=== PATIENT | male | born 1980 | race Two or more races ===

== ENCOUNTER 2022-07-25 21:58 | Emergency (ER) | payer OTHER ==
[~2022-07-25] VITALS: Ht 175.3 cm; Wt 90.7 kg
--- NOTE | 2022-07-25 22:05 | NUR ---
[id number] FRM WORK C/O ANXIETY, DIFFICULTY BREATHING, SNORTED METH 5 DAYS AGO. PT A/OX4. TOLERATING R/A WELL WITH NO RESP DISTRESS. AMB WITH STEADY GAIT. SAFETY MEASURES IN PLACE.
--- NOTE | 2022-07-25 22:08 | NUR ---
SECURITY AT PT'S BEDSIDE FOR WANDING
[2022-07-25 23:12] LABS: BASOPHILS % (AUTO) 0.7 % (0.0-2.0); EOSINOPHILS % (AUTO) 3.3 % (0.0-6.0); HEMATOCRIT 42 % (39-51); HEMOGLOBIN 13.7 g/dL (13.5-17.5); LYMPHOCYTES # (AUTO) 1.8 K/uL (0.8-4.8); MEAN CORPUSCULAR HGB CONC 33 g/dl (31.0-36.0); MEAN CORPUSCULAR VOLUME 87 fL (80-96); MONOCYTES # (AUTO) 0.8 K/uL (0.1-1.30); MONOCYTES % (AUTO) 13.4 % (2.0-12.0); NEUTROPHILS # (AUTO) 3.2 K/uL (1.8-8.9); NEUTROPHILS % (AUTO) 52.6 % (43.0-81.0); PLATELET COUNT (AUTO) 235 K/uL (150-450); RED BLOOD CELL COUNT(AUTO) 4.84 MIL/uL (4.5-6.0); WHITE BLOOD COUNT (AUTO) 6.1 K/uL (4.3-11.0)
[2022-07-25 23:26] LABS: CALCIUM, SERUM 8.6 mg/dL (8.5-10.1); CARBON DIOXIDE 31 mmol/L (21-32); CHLORIDE 104 mmol/L (98-107); CREATININE 0.8 mg/dL (0.6-1.3); GLUCOSE 113 mg/dL (74-106); SODIUM SERUM 139 mmol/L (136-145); UREA NITROGEN, BLOOD 12 mg/dL (7-18)
[2022-07-25] MEDS ORDERED: BACI30OI9 TOP (23:59)
[2022-07-25] MEDS ORDERED: LORA10TA7 PO (23:59)
[2022-07-26] MEDS ORDERED: IBUP-1955 PO
[2022-07-26 00:04] VITALS: BP 131/79
--- NOTE | 2022-07-26 00:35 | NUR ---
Patient discharged to home in stable condition. Written and verbal after care instructions given. Patient verbalizes understanding of instruction. IV removed. Catheter intact and site benign. Pressure and 4x4 applied to site. No bleeding noted.
== END 2022-07-26 00:49 | disposition home or self-care (01) ==
LOC: ER 21:58
DX: J34.81 Nasal mucositis (ulcerative) (principal); J34.89 Other specified disorders of nose and nasal sinuses; F15.10 Other stimulant abuse, uncomplicated; R06.02 Shortness of breath; Z60.2 Problems related to living alone
CPT/HCPCS: 36415; 71045-TC; 80048-TC; 84484-TC; 85025-TC

== ENCOUNTER 2024-11-15 14:10 | Emergency (ER) | payer OTHER ==
[~2024-11-15] VITALS: Ht 175.3 cm; Wt 145.1 kg
[~2024-11-15 14:10] MED LIST: BACI30OI9 TOP; IBUP-1955 PO; LORA10TA7 PO
[2024-11-15] MEDS ORDERED: LORAZEPAM 1 MG TABLET ONE (14:56)
[2024-11-15 15:03] VITALS: TEMP 97.9
[2024-11-15] MEDS: LORAZEPAM 1 MG TABLET PO ONE (15:03)
[2024-11-15 16:05] VITALS: BP 135/79; O2SAT 99
== END 2024-11-15 16:33 | disposition home or self-care (01) ==
LOC: ER 14:24
DX: F12.10 Cannabis abuse, uncomplicated (principal); F41.9 Anxiety disorder, unspecified; R06.02 Shortness of breath; Z60.2 Problems related to living alone; Z79.899 Other long term (current) drug therapy